=== PATIENT | male | born 1985 | race Caucasian/White ===

== ENCOUNTER → 2017-07-23 | Outpatient (CLI) | payer OTHER | LOC: RAD 09:03 | DX: J45.909 Unspecified asthma, uncomplicated (principal) ==

== ENCOUNTER 2017-10-07 12:20 | Day surgery (SDC) | payer OTHER ==
[~2017-10-07] VITALS: Ht 177.8 cm; Wt 95.3 kg
--- NOTE | ~2017-10-07 | O ---
[facility] [place] [address] OPERATIVE REPORT Name: GENE MCNULTY Room #: 150-8 [facility] M.R.#: [id number] Admission: 10/07/17 Attend Phys: Jass Solis Discharge: Date of : 81 Report #: [id number] THIS REPORT FOR: //name// CC: FAM unknown Jass Mckinley DATE OF SERVICE: 10/07/2017 PREOPERATIVE DIAGNOSES: Smash injury to left hand, open fractures of long and ring finger distal phalanx, partial amputation of long finger, multiple lacerations of ring finger. POSTOPERATIVE DIAGNOSES: Smash injury to left hand, open fractures of long and ring finger distal phalanx, partial amputation of long finger, multiple lacerations of ring finger. PROCEDURE PERFORMED: Irrigation and debridement of left hand long and ring fingers, partial amputation and shortening of distal phalanx of long finger with closure of open amputation, closure of multiple lacerations on left ring finger. SURGEON: Jass Mckinley MD ANESTHESIA: General. FLUIDS: 400 mL. TOURNIQUET: Not utilized for this procedure. DESCRIPTION OF PROCEDURE: After proper identification of the patient and operative site in preoperative holding area, the operative site was signed by myself. Prophylactic antibiotics and tetanus have been given and updated in the Emergency Department. Initial irrigation had been performed and a sterile dressing was applied in the Emergency Department. The patient initially was seen and evaluated in the pre-anesthesia unit. We discussed his injuries. We went over the potential complications of his injury as well as the risks, benefits, alternatives and potential complications of treatment. We discussed with his soft tissue loss the need to shorten his distal phalanx on the long finger to aid in closure. We discussed that the patient may elect to follow up with my hand surgeon partner, Dr. Campo who was not available today for followup. Questions were encouraged, all were answered. The patient demonstrated understanding of above noted discussion and wished to proceed with the above. He was then brought back to the operative suite after induction of satisfactory general anesthesia per LMA. The left hand was sterilely prepped and draped. The open wounds were thoroughly irrigated with antibiotic irrigant by bulb syringe. The long finger had prominence of the distal phalanx that could not be closed with the remaining soft tissue. There was soft tissue loss [address] [address] OPERATIVE REPORT Name: GENE MCNULTY Room #: [facility]8 [facility] M.Cynthia.#: [id number] Admission: 10/07/17 Attend Phys: Jass Solis Discharge: Date of : 81 Report #: [id number] about the finger that included some of the distal skin. The entire nail plate had been removed as well as some of the nail bed and nail matrix appeared to be still intact. With a rongeur, the distal phalanx was shortened to accommodate more primary closure of the soft tissue, 3-0 nylon was utilized to close this wound as the laceration was more transverse in nature with a more proximally based flap of the distal aspect of the finger noted. This was able to be closed over the remaining digit. The proximally based flap appeared viable and had good capillary refill. Then, attention was divided to the ring finger. A transverse laceration was noted about the distal phalanx. There was a more longitudinal type smaller laceration distal to this within the tuft portion. The nail matrix itself was intact. There did not appear to be any significant subungual hematoma. DIP and PIP joints were stable and compartments were all soft with mild swelling being noted. At this point, the two lacerations on the fingertip were closed with a 3-0 nylon. There was some duskiness to the more distally based flap on the finger as we had discussed preoperatively that this could and slough or fall off later, but should work as more of a natural dressing if that occurred where there was bruising of this tissue as well as some duskiness of that skin flap. This was done after the wound had been thoroughly irrigated with normal saline, thus no exposed bone was noted. Length of the lacerations was approximately 2.5 cm closed on that finger. At this point, the hand was cleaned. Xeroform gauze was applied followed by tube gauze, overwrapped with a Kerlix. He was awakened and transferred to the recovery room in stable condition. By: [id number] Jass Mckinley MD /nt
--- NOTE | ~2017-10-07 | HC ---
[facility] [place] [address] CONSULTATION Name: GENE MCNULTY Room #: DEP [facility] M.R.#: [id number] Admission: 10/07/17 Attend Phys: Jass Solis Discharge: 10/07/17 Date of : 81 Report #: [id number] THIS REPORT FOR: //name// CC: FAM unknown Jass Mckinley DATE OF SERVICE: 10/07/2017 Orthopedic Consultation CHIEF COMPLAINT: Left hand injury. HISTORY OF PRESENT ILLNESS: The patient is a pleasant 32-year-old gentleman seen today for evaluation of his left hand injury. The patient reports that he crushed his hand with a stack of weights weighing approximately 90 to 100 pounds. This primarily involved his long and ring fingers. His wounds were initially treated in the emergency department. Antibiotics were started. Tetanus was updated. 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 Gym injury occurred at approximately 12:15. PAST MEDICAL HISTORY: Significant for asthma and anxiety. MEDICATIONS: Albuterol, fluticasone propionate spray and fluticasone inhaler. ALLERGIES: BENADRYL. SOCIAL HISTORY: The patient consumes alcohol on a weekly basis. Reports marijuana for recreational drug use, used weekly. Denies tobacco use. He has a child. REVIEW OF SYSTEMS: The patient denies other injuries. PHYSICAL EXAMINATION: VITAL SIGNS: On admission, pulse 98, BP 124/59, temperature 36.6, pulse ox was 98.4, pulse was 110, respirations 26, weight 95 kilos. GENERAL: The patient is alert, oriented, answering questions appropriately and is anxious. EXTREMITIES: Examination of the left hand as compared to the right reveals shortening of the long finger. Tissue loss was noted about the tip, exposed distal phalanx was present. At least two-thirds of the nail bed itself appeared to be gone. Region of the nail matrix appears to still be viable and more proximally based flap from the volar surface, appears present that could potentially be closed over his wound. Digital blocks have been performed. Multiple small wounds were noted on the ring finger of the left hand in various planes. Ecchymosis and some duskiness of the more distally based flap was [facility] [address] [place] [address] CONSULTATION Name: GENE MCNULTY Room #: [facility] Judy.#: [id number] Admission: 10/07/17 Attend Phys: Jass Solis Discharge: 10/07/17 Date of : 81 Report #: [id number] noted. There is no significant subungual hematoma. Complete loss of nail plate was noted on the long finger. He is able to minimally actively flex and extend the digits. Mild swelling is noted. Hand compartments are soft as well as the forearm. The patient has full range of motion of the right hand. No injuries are noted. No swelling is appreciated. Radiographs revealed distal soft tissue amputation of the long finger on the left hand and distal phalanx fracture is noted. There is comminuted fracture of the ring finger distal phalanx, as well as laceration. IMPRESSION: 1. Left hand crush injury, long finger partial amputation with open fracture of distal phalanx. 2. Open fracture of the distal phalanx of the ring finger with multiple lacerations. PLAN: The patient was seen and evaluated. We discussed his injuries. We discussed potential long-term complications such as infection, stiffness, persistent pain, hypersensitivity, and drainage. We discussed wound care including 3 times a day soap and water washes that can start in 2 days. We discussed having the patient follow with my hand partner, Dr. Campo for continuation of care. The patient may lose his nail plate on the third finger. We reviewed the potential need for further care treatment and/or surgeries. I would leave this at the discretion of my partner and we reviewed that he can be sent home on p.o. antibiotic. Elevation and icing can help reduce some of the swelling and pain and discomfort. Questions were encouraged, all were answered. The patient wished to proceed with an emergent irrigation and debridement, as well as revision of his partial amputation and closure. By: [id number] Jass Mckinley MD /guadalupe
[2017-10-07] MEDS ORDERED: VENTOLIN HFA 1818 GM INH (12:53)
[2017-10-07] MEDS ORDERED: FLUTICASONE PRO16 GM INH (12:54)
[2017-10-07] MEDS ORDERED: BREO ELLIPTA 11 EACH INH (12:54)
[2017-10-07 16:59] VITALS: BP 124/82
== END 2017-10-07 17:36 | disposition home or self-care (01) ==
LOC: ER 12:20 → TBA 14:10 → OR 14:23 → TBA 14:24 → OR 17:36
DX: S67.22XA Crushing injury of left hand, initial encounter (principal); S62.633B Displaced fracture of distal phalanx of left middle finger, initial encounter for open fracture; S62.635B Displaced fracture of distal phalanx of left ring finger, initial encounter for open fracture; J45.909 Unspecified asthma, uncomplicated; F41.9 Anxiety disorder, unspecified; Z88.8 Allergy status to other drugs, medicaments and biological substances; Z79.899 Other long term (current) drug therapy; Y99.8 Other external cause status; X58.XXXA Exposure to other specified factors, initial encounter; Y93.89 Activity, other specified; Y92.89 Other specified places as the place of occurrence of the external cause
CPT/HCPCS: 50010; 50101; 50386; 56527; 57091; 62110; 62900; 70005